=== PATIENT | male | born 1990 | race Caucasian/White ===

== ENCOUNTER 2020-11-04 21:01 | Emergency (ER) | payer OTHER ==
[~2020-11-04] VITALS: Ht 180.3 cm; Wt 89.7 kg
[2020-11-04 21:02] VITALS: BP 142/78
[2020-11-05] MEDS ORDERED: cefTRIAXone SOD 1 GM in D5W MINI-BAG PLUS 50 ML IV ONE (00:15)
[2020-11-05] MEDS ORDERED: KETOROLAC 30 MG/ML 1ML VIAL IV ONE (00:15)
[2020-11-05] MEDS ORDERED: NS 1,000 ML IV ONE (00:15)
[2020-11-05 00:41] LABS: BASO % 0.4 % (0.0-1.0); EOS # 0.2 10^3/uL (0.0-0.5); EOS % 1.7 % (0.0-3.0); HEMATOCRIT 41.7 % (42.0-52.0); HEMOGLOBIN 14.1 g/dl (13.5-17.5); MEAN CORPUSCULAR HGB CONC 33.8 g/dl (32.0-36.5); MEAN CORPUSCULAR VOLUME 88.7 fl (80.0-96.0); MONO # 1.1 10^3/uL (0.0-0.8); MONO % 9.7 % (2.0-8.0); NEUTROPHILS # 6.7 10^3/uL (1.5-8.5); NEUTROPHILS % 60.9 % (36.0-66.0); PLATELET COUNT, AUTOMATED 176 10^3/uL (150-450)
[2020-11-05 00:58] LABS: ERYTHROCYTE SEDIMENTATION RATE 12 mm/hr (0-15)
[2020-11-05] MEDS ORDERED: IBUP-1022 PO (01:47)
[2020-11-05] MEDS ORDERED: HYDR-3715 PO (01:47)
[2020-11-05] MEDS ORDERED: DOXY100C37 PO (01:47)
[2020-11-05] MEDS ORDERED: NORCO 5/325MG TABLET (BULK FOR ED) PO ONE (01:50)
[2020-11-05] MEDS ORDERED: DOXYCYCLINE HYCLATE 100MG TABLET PO ONE (01:50)
== END 2020-11-05 02:11 | disposition home or self-care (01) ==
LOC: M ED 21:01
DX: L03.116 Cellulitis of left lower limb (principal)
CPT/HCPCS: 80047; 83605; 85025; 85652; 86140; 87040; 96365; 96375; 99283; J0696; J1885